=== PATIENT | female | born 1980 | race Caucasian/White ===

== ENCOUNTER 2020-02-18 15:54 | Emergency (ER) | payer OTHER, SELFPAY ==
[2020-02-18 16:48] VITALS: BP 110/63; PULSE 60; RESP 18; TEMP 36.3; O2SAT 96; BMI 25.0
--- NOTE | 2020-02-18 17:04 | PC.NURSE ---
Pt cooperative with change management facilitator. Tearful. Currently resting in room. No complaints or signs of distress.
[2020-02-18 17:34] LABS: UPreg QC Valid YES; Urine Pregnancy NEGATIVE (NEGATIVE)
[2020-02-18 18:04] LABS: Amphetamine Screen Urine Not Detected (Not Detect); Barbiturates, Urine Not Detected (Not Detect); Benzodiazepines Screen Urine Not Detected (Not Detect); Cannabinoid Screen Urine Not Detected (Not Detect); Cocaine Screen Urine Not Detected (Not Detect); Opiate Screen Urine Not Detected (Not Detect); Phencyclidine Screen Urine Not Detected (Not Detect)
--- NOTE | 2020-02-18 18:38 | ED_ITS ---
HPI - Psych General Chief Complaint: Psychiatric Symptoms <Jaziel Kim NP - Last Filed: 02/18/20 20:54> Stated Complaint: CRISIS <Jaziel Kim NP - Last Filed: 02/18/20 20:54> Time Seen by Provider: 02/18/20 18:38 <Jaziel Kim NP - Last Filed: 02/18/20 20:54> Source: patient <Jaziel Kim NP - Last Filed: 02/18/20 20:54> Mode of arrival: ambulatory <Jaziel Kim NP - Last Filed: 02/18/20 20:54> Limitations: no limitations <Jaziel Kim NP - Last Filed: 02/18/20 20:54> History of Present Illness HPI Narrative: This is a 39-year-old female with history of bipolar 1, manic depression, anxiety disorder an ulcer colitis who presents via ambulatory via triage with complaint of feeling increasingly depressed and suicidal. States this is compounding over the past several days / weeks and exacerbated by the fact that she does not have custody of her daughter and has been in legal barr with her mother to get custody. She otherwise denies any illicit substance use. Denies any alcohol use. Denies any medical problems at this time. Upon my arrival to the bedside patient was eating dinner in no acute distress. <Jaziel Kim NP - Last Filed: 02/18/20 20:54> MD complaint: suicidal ideation and feels depressed <Jaziel Kim NP - Last Filed: 02/18/20 20:54> Onset (ago): day(s) <Jaziel Kim NP - Last Filed: 02/18/20 20:54> Duration: constant <Jaziel Kim NP - Last Filed: 02/18/20 20:54> History of same: Yes <Jaziel Kim NP - Last Filed: 02/18/20 20:54> Relieving factors: none <Jaziel Kim NP - Last Filed: 02/18/20 20:54> Exacerbating factors: other ( Social stressors) <Jaziel Kim NP - Last Filed: 02/18/20 20:54> Associated psychiatric symptoms: depression and suicidal ideation <Jaziel Kim NP - Last Filed: 02/18/20 20:54> Associated symptoms: denies other symptoms <Jaziel Kim NP - Last Filed: 02/18/20 20:54> Treatments prior to arrival: none <Jaziel Kim NP - Last Filed: 02/18/20 20:54> If self harm: admits thoughts of self harm ( no specific plan) <Jaziel Kim NP - Last Filed: 02/18/20 20:54> Related Data Home Medications: Home Medications Medication Instructions Recorded Confirmed citalopram 20 mg PO DAILY 02/18/20 02/18/20 clonidine HCl 0.1 mg PO BID 02/18/20 02/18/20 clonidine HCl 0.2 mg PO BEDTIME 02/18/20 02/18/20 gabapentin 300 mg PO TID 02/18/20 02/18/20 mirtazapine [Remeron] 15 mg PO BEDTIME 02/18/20 02/18/20 oxcarbazepine [Trileptal] 300 mg PO BID 02/18/20 02/18/20 quetiapine [Seroquel] 100 mg PO BEDTIME 02/18/20 02/18/20 <Jaziel Kim NP - Last Filed: 02/18/20 20:54> Allergies/Adverse Reactions: Allergies Allergy/AdvReac Type Severity Reaction Status Date / Time No Known Allergies Allergy Unverified 01/20/20 17:24 [No Known Allergies*] mayonaise Allergy Unknown rash Uncoded 07/31/16 00:00 <Jaziel Kim NP - Last Filed: 02/18/20 20:54> Review of Systems Review of Systems: Constitutional: No Weight loss, No Fever, No Chills, No Night Sweats, No Fatigue, No Malaise ENT/Mouth: No Hearing loss, No Ear Pain, No Nasal Congestion, No Sinus Pain, No Hoarseness, No sore throat, No Rhinorrhea, No Swallowing Difficulty Eyes: No Eye Pain, No Swelling, No Redness, No Foreign Body, No Discharge, No Vision Changes Cardiovascular: No Chest Pain, No SOB, No Dyspnea on Exertion, No Orthopnea, No Edema, No Palpitations Respiratory: No Cough, No Sputum, No Wheezing, No Smoke Exposure, No Dyspnea Gastrointestinal: No Nausea, No Vomiting, No Diarrhea, No Constipation, No abdominal Pain, No Hematochezia, No Melena Genitourinary: no irregular bleeding, No Dysuria, No Urinary Frequency, No Hematuria, No Urinary Incontinence, No Urgency, No Flank Pain, No Urinary Flow Changes, No Hesitancy Musculoskeletal: No joint pain, No Myalgias, No Joint Swelling Skin: No Skin Lesions, No rash Neuro: No Weakness, No Numbness, No Paresthesias, No Loss of Consciousness, No Dizziness, No Headache Psych: as noted in HPI Heme/Lymph: No Bruising, No Bleeding,No Lymphadenopathy Endocrine: No Polyuria, No Polydipsia, No Temperature Intolerance <Jaziel Kim NP - Last Filed: 02/18/20 20:54> Yes all other systems are reviewed and are negative <Jaziel Kim NP - Last Filed: 02/18/20 20:54> [facility] Past Medical History Attestation statement: The following information was validated with the patient. <Jaziel Kim NP - Last Filed: 02/18/20 20:54> Medical History: Medical History (Updated 02/18/20 @ 20:54 by Jaziel Kim NP) Stomach ulcer Ulcerative (chronic) enterocolitis <Jaziel Kim NP - Last Filed: 02/18/20 20:54> Social History Social History: Social History Alcohol intake: unknown Smoking Status: Unknown if ever smoked Use of substances other than those prescribed or required for medical reasons: Unknown Any prior treatment program specific to substance use: Yes Advance Directives: No Advance Directives Information Provided: Yes <Jaziel Kim NP - Last Filed: 02/18/20 20:54> Physical Exam Vital Signs: Vital Signs: Vital Signs Temp Pulse Resp BP Pulse Ox 02/18/20 21:37 97 F 55 16 101/58 L 96 02/18/20 20:12 59 110/76 02/18/20 16:48 97.3 F 60 18 110/63 96 Body Mass Index 25.0 Reviewed <Jaziel Kim NP - Last Filed: 02/18/20 20:54> Vital Signs: Vital Signs Temp Pulse Resp BP Pulse Ox 02/18/20 21:37 97 F 55 16 101/58 L 96 02/18/20 20:12 59 110/76 02/18/20 16:48 97.3 F 60 18 110/63 96 Body Mass Index 25.0 <Christopher Pena MD - Last Filed: 02/19/20 00:30> Const: General: cooperative and healthy appearing; No acute distress or intoxicated appearing <[facility] LION Kim - Last Filed: 02/18/20 20:54> Nutritional Appearance: average body habitus <[facility] LION Kim - Last Filed: 02/18/20 20:54> Orientation/consciousness: patient oriented x3 <[facility] LION Kim - Last Filed: 02/18/20 20:54> HENMT: Head: Yes normal to inspection <[facility] Julio WEATHER OBSERVER - Last Filed: 02/18/20 20:54> Ears: hearing grossly normal bilaterally <[facility] Julio WEATHER OBSERVER - Last Filed: 02/02 10/22 20:54> Eyes: General: appearance normal, both eyes and all related structures <[facility] LION Kim - Last Filed: 02/18/20 20:54> Visual Yousif: normal visual yousif by confrontation <[facility] Julio WEATHER OBSERVER - Last Filed: 02/18/20 20:54> Neck: Neck: Yes normal visual inspection and No tender <[facility] Julio WEATHER OBSERVER - Last Filed: 02/18/20 20:54> Thyroid: Thyroid normal <[facility] Julio WEATHER OBSERVER - Last Filed: 02/18/20 20:54> Chest: Chest palpation & inspection: normal inspection of the chest <[facility] LION Kim - Last Filed: 02/18/20 20:54> Resp: Effort & Inspection: normal respiratory effort <[facility] LION Kim - Last Filed: 02/18/20 20:54> Cardio: Jugular venous distension: no JVD <[facility] Julio - Last Filed: 02/18/20 20:54> GI: Inspection: Yes normal to inspection <[facility] LION Kim - Last Filed: 02/18/20 20:54> Percussion: Yes normal to percussion <[facility] Julio WEATHER OBSERVER - Last Filed: 02/18/20 20:54> Auscultation: normal bowel sounds <[facility] Julio WEATHER OBSERVER - Last Filed: 02/18/20 20:54> : General: Yes no CVA tenderness <[facility] Julio WEATHER OBSERVER - Last Filed: 02/18/20 20:54> Back/Spine/Pelvis: Back: no CVA tenderness <Jaziel Kim NP - Last Filed: 02/18/20 20:54> Skin: General skin exam: no rashes or lesions noted <Jaziel Kim NP - Last Filed: 02/18/20 20:54> Neuro: General: patient oriented x3 <Jaziel Kim NP - Last Filed: 02/18/20 20:54> Extrem: General: Yes normal to inspection <Jaziel Kim NP - Last Filed: 02/18/20 20:54> Course Course Course Narrative: interview 39-year-old female with above history presenting with complaint of suicidal ideation in the setting of progressively worsening depression. Offers no medical complaints. At this time will get medical screening labs and crisis evaluation. Plan reviewed agreeable. <Jaziel Kim NP - Last Filed: 02/18/20 20:54> I have reviewed the chart <Christopher Pena MD - Last Filed: 02/19/20 00:30> Reevaluation(s) Reevaluation #1: 1830; evaluate by care team apparently revelation that she was evaluated by crisis team in the community and there was bed search for respite in progress. Care team will clarify this and get back to me. <Jaziel Kim NP - Last Filed: 02/18/20 20:54> Consultations Consultation #1: 2100 Signed out to night team pending crisis evaluation. <Jaziel Kim NP - Last Filed: 02/18/20 20:54> MDM - Psych Restraints Face to Face Assessment: Face to Face Assessment: Current Situation: After assessment of the patient, a review of the pertinent medical record and a discussion with nursing staff, I feel the patient requires a restrain intervention. Reaction To: [] Medical Condition: [] Behavioral State: [] Continued Need: [] <Jaziel Kim NP - Last Filed: 02/18/20 20:54> Lab Data Result diagrams: : 02/18/20 20:39 02/18/20 20:39 <Jaziel Kim NP - Last Filed: 02/18/20 20:54> Labs: Lab Results 10/16/20 10/16/20 10/16/20 Range/Units 17:05 17:05 20:39 WBC 4.9 (4.8-10.8) X10*3/uL RBC 4.50 (4.20-5.50) X10*6/uL Hgb 13.4 (12.0-16.0) g/dl Hct 40.3 (37-47) % MCV 89.6 (80-98) fL MCH 29.8 (27.0-33.0) pg MCHC 33.3 (31.0-35.0) g/dl RDW 12.9 (11.0-16.0) % Plt Count 148 L (160-400) X10*3/uL MPV 11.1 (9.4-12.3) fL Immature Gran % (Auto) 0.4 (0.0-0.4) % Neut % (Auto) 49.7 (45-73) % Lymph % (Auto) 41.4 H (20-40) % [place] % (Auto) 5.5 (2-11) % Eos % (Auto) 2.2 (0-4) % Baso % (Auto) 0.8 (0-2) % Lymph # (Auto) 2.0 (1.2-4.9) X10*3/uL [place] # (Auto) 0.3 (0.1-1.2) X10*3/uL Eos # (Auto) 0.1 (0.0-0.4) X10*3/uL Baso # (Auto) 0.0 (0.0-0.2) X10*3/uL Abs Immat Gran (auto) 0.02 (0.00-0.03) X10*3/uL Absolute Neuts (auto) 2.5 (2.0-8.3) X10*3/uL Absolute Nucleated RBC 0.000 (0.0-0.012) X10*3/uL Nucleated RBC % (auto) 0.0 (0.0-0.2) /100WBC Sodium (135-145) mmol/L Potassium (3.3-5.1) mmol/l Chloride (96-108) mmol/L Carbon Dioxide (22-29) mmol/L Anion Gap (12-20) BUN (9-16) mg/dL Creatinine (0.5-1.4) mg/dL Estim Creat Clear Calc Estimated GFR Random Glucose (60-115) mg/dL Calcium (8.4-10.2) mg/dL Total Bilirubin (0.0-1.0) mg/dL Direct Bilirubin (0.0-0.5) mg/dL AST (5-31) U/L ALT (0-31) U/L Alkaline Phosphatase (39-117) U/L Total Protein (6.5-8.0) g/dL Albumin (3.5-5.0) g/dL Urine Test NEGATIVE (NEGATIVE) Urine Opiates Screen Not Detected (Not Detect) Ur Barbiturates Screen Not Detected (Not Detect) Ur Phencyclidine Scrn Not Detected (Not Detect) Ur Amphetamines Screen Not Detected (Not Detect) U Benzodiazepines Scrn Not Detected (Not Detect) Urine Cocaine Screen Not Detected (Not Detect) U Marijuana (THC) Screen Not Detected (Not Detect) Ethyl Alcohol mg/dL 02/18/20 02/18/20 Range/Units 20:39 20:39 WBC (4.8-10.8) X10*3/uL RBC (4.20-5.50) X10*6/uL Hgb (12.0-16.0) g/dl Hct (37-47) % MCV (80-98) fL MCH (27.0-33.0) pg MCHC (31.0-35.0) g/dl RDW (11.0-16.0) % Plt Count (160-400) X10*3/uL MPV (9.4-12.3) fL Immature Gran % (Auto) (0.0-0.4) % Neut % (Auto) (45-73) % Lymph % (Auto) (20-40) % [place] % (Auto) (2-11) % Eos % (Auto) (0-4) % Baso % (Auto) (0-2) % Lymph # (Auto) (1.2-4.9) X10*3/uL [place] # (Auto) (0.1-1.2) X10*3/uL Eos # (Auto) (0.0-0.4) X10*3/uL Baso # (Auto) (0.0-0.2) X10*3/uL Abs Immat Gran (auto) (0.00-0.03) X10*3/uL Absolute Neuts (auto) (2.0-8.3) X10*3/uL Absolute Nucleated RBC (0.0-0.012) X10*3/uL Nucleated RBC % (auto) (0.0-0.2) /100WBC Sodium 139 (135-145) mmol/L Potassium 4.2 (3.3-5.1) mmol/l Chloride 106 (96-108) mmol/L Carbon Dioxide 26 (22-29) mmol/L Anion Gap 11 L (12-20) BUN 15 (9-16) mg/dL Creatinine 0.88 (0.5-1.4) mg/dL Estim Creat Clear Calc 85.7 Estimated GFR > 60 Random Glucose 95 (60-115) mg/dL Calcium 9.1 (8.4-10.2) mg/dL Total Bilirubin 0.3 (0.0-1.0) mg/dL Direct Bilirubin < 0.2 (0.0-0.5) mg/dL AST 15 (5-31) U/L ALT 15 (0-31) U/L Alkaline Phosphatase 62 (39-117) U/L Total Protein 6.6 (6.5-8.0) g/dL Albumin 4.4 (3.5-5.0) g/dL Urine Test (NEGATIVE) Urine Opiates Screen (Not Detect) Ur Barbiturates Screen (Not Detect) Ur Phencyclidine Scrn (Not Detect) Ur Amphetamines Screen (Not Detect) U Benzodiazepines Scrn (Not Detect) Urine Cocaine Screen (Not Detect) U Marijuana (THC) Screen (Not Detect) Ethyl Alcohol < 10 mg/dL <Jaziel Kim NP - Last Filed: 02/18/20 20:54> Lab Results 02/18/20 02/18/20 02/18/20 Range/Units 17:05 17:05 20:39 WBC 4.9 (4.8-10.8) X10*3/uL RBC 4.50 (4.20-5.50) X10*6/uL Hgb 13.4 (12.0-16.0) g/dl Hct 40.3 (37-47) % MCV 89.6 (80-98) fL MCH 29.8 (27.0-33.0) pg MCHC 33.3 (31.0-35.0) g/dl RDW 12.9 (11.0-16.0) % Plt Count 148 L (160-400) X10*3/uL MPV 11.1 (9.4-12.3) fL Immature Gran % (Auto) 0.4 (0.0-0.4) % Neut % (Auto) 49.7 (45-73) % Lymph % (Auto) 41.4 H (20-40) % [place] % (Auto) 5.5 (2-11) % Eos % (Auto) 2.2 (0-4) % Baso % (Auto) 0.8 (0-2) % Lymph # (Auto) 2.0 (1.2-4.9) X10*3/uL [place] # (Auto) 0.3 (0.1-1.2) X10*3/uL Eos # (Auto) 0.1 (0.0-0.4) X10*3/uL Baso # (Auto) 0.0 (0.0-0.2) X10*3/uL Abs Immat Gran (auto) 0.02 (0.00-0.03) X10*3/uL Absolute Neuts (auto) 2.5 (2.0-8.3) X10*3/uL Absolute Nucleated RBC 0.000 (0.0-0.012) X10*3/uL Nucleated RBC % (auto) 0.0 (0.0-0.2) /100WBC Sodium (135-145) mmol/L Potassium (3.3-5.1) mmol/l Chloride (96-108) mmol/L Carbon Dioxide (22-29) mmol/L Anion Gap (12-20) BUN (9-16) mg/dL Creatinine (0.5-1.4) mg/dL Estim Creat Clear Calc Estimated GFR Random Glucose (60-115) mg/dL Calcium (8.4-10.2) mg/dL Total Bilirubin (0.0-1.0) mg/dL Direct Bilirubin (0.0-0.5) mg/dL AST (5-31) U/L ALT (0-31) U/L Alkaline Phosphatase (39-117) U/L Total Protein (6.5-8.0) g/dL Albumin (3.5-5.0) g/dL Urine Test NEGATIVE (NEGATIVE) Urine Opiates Screen Not Detected (Not Detect) Ur Barbiturates Screen Not Detected (Not Detect) Ur Phencyclidine Scrn Not Detected (Not Detect) Ur Amphetamines Screen Not Detected (Not Detect) U Benzodiazepines Scrn Not Detected (Not Detect) Urine Cocaine Screen Not Detected (Not Detect) U Marijuana (THC) Screen Not Detected (Not Detect) Ethyl Alcohol mg/dL 02/18/20 02/18/20 Range/Units 20:39 20:39 WBC (4.8-10.8) X10*3/uL RBC (4.20-5.50) X10*6/uL Hgb (12.0-16.0) g/dl Hct (37-47) % MCV (80-98) fL MCH (27.0-33.0) pg MCHC (31.0-35.0) g/dl RDW (11.0-16.0) % Plt Count (160-400) X10*3/uL MPV (9.4-12.3) fL Immature Gran % (Auto) (0.0-0.4) % Neut % (Auto) (45-73) % Lymph % (Auto) (20-40) % [place] % (Auto) (2-11) % Eos % (Auto) (0-4) % Baso % (Auto) (0-2) % Lymph # (Auto) (1.2-4.9) X10*3/uL [place] # (Auto) (0.1-1.2) X10*3/uL Eos # (Auto) (0.0-0.4) X10*3/uL Baso # (Auto) (0.0-0.2) X10*3/uL Abs Immat Gran (auto) (0.00-0.03) X10*3/uL Absolute Neuts (auto) (2.0-8.3) X10*3/uL Absolute Nucleated RBC (0.0-0.012) X10*3/uL Nucleated RBC % (auto) (0.0-0.2) /100WBC Sodium 139 (135-145) mmol/L Potassium 4.2 (3.3-5.1) mmol/l Chloride 106 (96-108) mmol/L Carbon Dioxide 26 (22-29) mmol/L Anion Gap 11 L (12-20) BUN 15 (9-16) mg/dL Creatinine 0.88 (0.5-1.4) mg/dL Estim Creat Clear Calc 85.7 Estimated GFR > 60 Random Glucose 95 (60-115) mg/dL Calcium 9.1 (8.4-10.2) mg/dL Total Bilirubin 0.3 (0.0-1.0) mg/dL Direct Bilirubin < 0.2 (0.0-0.5) mg/dL AST 15 (5-31) U/L ALT 15 (0-31) U/L Alkaline Phosphatase 62 (39-117) U/L Total Protein 6.6 (6.5-8.0) g/dL Albumin 4.4 (3.5-5.0) g/dL Urine Test (NEGATIVE) Urine Opiates Screen (Not Detect) Ur Barbiturates Screen (Not Detect) Ur Phencyclidine Scrn (Not Detect) Ur Amphetamines Screen (Not Detect) U Benzodiazepines Scrn (Not Detect) Urine Cocaine Screen (Not Detect) U Marijuana (THC) Screen (Not Detect) Ethyl Alcohol < 10 mg/dL <Christopher Pena MD - Last Filed: 02/19/20 00:30> Discharge Plan Discharge Clinical Impression: Depression <Jaziel Kim NP - Last Filed: 02/18/20 20:54> Prescriptions: No Action oxcarbazepine [Trileptal] 150 mg Tablet 300 mg PO BID RF: 0 clonidine HCl 0.1 mg Tablet 0.1 mg PO BID RF: 0 quetiapine [Seroquel] 100 mg Tablet 100 mg PO BEDTIME RF: 0 clonidine HCl 0.2 mg Tablet 0.2 mg PO BEDTIME RF: 0 mirtazapine [Remeron] 15 mg Tablet 15 mg PO BEDTIME RF: 0 gabapentin 300 mg Tablet 300 mg PO TID RF: 0 citalopram 20 mg Tablet 20 mg PO DAILY RF: 0 <Jaziel Kim NP - Last Filed: 02/18/20 20:54>
--- NOTE | 2020-02-18 18:38 | PC.NURSE ---
Pt resting, awaiting evaluation. No concerns reported.
--- NOTE | 2020-02-18 19:15 | PC.NURSE ---
Called [facility], spoke with Dianne. Pt was seen in the community yesterday, is a respite bed search. [facility] will be out tomorrow AM to do a MSU.
--- NOTE | 2020-02-18 20:03 | PC.NURSE ---
Pt currently on phone. Slightly agitated after learning that N would not be out to see pt until the AM for a MSU. This is shit that makes people want to kill themselves .
[2020-02-18 20:12] VITALS: BP 110/76; PULSE 59
[2020-02-18] MEDS: Mirtazapine 15 MG TABLET PO (20:12)
[2020-02-18] MEDS: cloNIDine HCL 0.2 MG TABLET PO (20:12)
[2020-02-18] MEDS: QUEtiapine Fumarate 100 MG TABLET PO (20:13)
[2020-02-18] MEDS: LORazepam 1 MG TABLET PO (20:13)
--- NOTE | 2020-02-18 20:32 | PC.NURSE ---
Pt's residence - [facility], faxed pt's current med list.
[2020-02-18 20:47] LABS: MANUAL DIFF FLAG NO
[2020-02-18 20:49] LABS: Basophils Percent Auto 0.8 % (0-2); Eosinophils Absolute Auto 0.1 X10*3/uL (0.0-0.4); Eosinophils Percent Auto 2.2 % (0-4); Hematocrit 40.3 % (37-47); Hemoglobin 13.4 g/dl (12.0-16.0); Imm Gran Abs Auto 0.02 X10*3/uL (0.00-0.03); Imm Gran Pct Auto 0.4 % (0.0-0.4); Lymphocytes Percent Auto 41.4 % (20-40); Mean Corpuscular HGB Conc 33.3 g/dl (31.0-35.0); Mean Corpuscular Hemoglobin 29.8 pg (27.0-33.0); Mean Corpuscular Volume 89.6 fL (80-98); Mean Platelet Volume 11.1 fL (9.4-12.3); Monocytes Absolute Auto 0.3 X10*3/uL (0.1-1.2); Monocytes Percent Auto 5.5 % (2-11); Neutrophils Absolute Auto 2.5 X10*3/uL (2.0-8.3); Neutrophils Percent Auto 49.7 % (45-73); Platelet Count 148 X10*3/uL (160-400); Red Cell Distribution Width 12.9 % (11.0-16.0); White Blood Count 4.9 X10*3/uL (4.8-10.8)
[2020-02-18 21:12] LABS: Ethanol < 10 mg/dL
[2020-02-18 21:14] LABS: Alanine Aminotransferase 15 U/L (0-31); Albumin Level 4.4 g/dL (3.5-5.0); Alkaline Phosphatase 62 U/L (39-117); Anion Gap 11 (12-20); Aspartate Amino Transferase 15 U/L (5-31); Bilirubin Direct < 0.2 mg/dL (0.0-0.5); Bilirubin Total 0.3 mg/dL (0.0-1.0); Blood Urea Nitrogen 15 mg/dL (9-16); Calcium 9.1 mg/dL (8.4-10.2); Carbon Dioxide 26 mmol/L (22-29); Chloride 106 mmol/L (96-108); Creatinine Clr Calc Pharmacy 85.7; Estimated Glomerular Filt Rate > 60; Glucose Random 95 mg/dL (60-115); Potassium 4.2 mmol/l (3.3-5.1); Sodium 139 mmol/L (135-145); Total Protein 6.6 g/dL (6.5-8.0)
[2020-02-18 21:37] VITALS: BP 101/58; PULSE 55; RESP 16; TEMP 36.1; O2SAT 96
[2020-02-19] MEDS: OXcarbazepine 150 MG TABLET 300 MG PO ×2 (00:05→09:31)
[2020-02-19 06:38] VITALS: BP 106/53; PULSE 54; RESP 16; TEMP 36.4; O2SAT 95
--- NOTE | 2020-02-19 06:54 | PC.NURSE ---
Report received. PT sleeping in bed. Breathing is even and unlabored. PT to be reevaluated this morning.
[2020-02-19 09:04] VITALS: BP 100/59; PULSE 50; RESP 18; TEMP 36.8
[2020-02-19 09:31] VITALS: BP 107/62; PULSE 51
[2020-02-19] MEDS: Gabapentin 300 MG CAPSULE PO (09:31)
[2020-02-19] MEDS: Escitalopram Oxalate 10 MG TABLET PO (09:31)
[2020-02-19] MEDS: cloNIDine HCL 0.1 MG TABLET PO (09:31)
--- NOTE | 2020-02-19 09:41 | PC.NURSE ---
[facility] contaced to verify methadone dose. This RN spoke with Tameka who stated pt was last does on 02/15 with 85mg and that pt was given 6 take home doses at that time.
[2020-02-19] MEDS: Nicotine 21 MG PATCH.TD24 TRANSDERMA (09:57)
--- NOTE | 2020-02-19 10:01 | PC.NURSE ---
PT is resting in bed watching TV. Calm and cooperative. No other complaints.
== END 2020-02-19 11:41 | disposition home or self-care (01) ==
PROVIDERS: Nurse Practitioner Primary Care; Emergency Provider Emergency Medicine; PCP Internal Medicine
DX: F31.89 Other bipolar disorder (principal); R45.851 Suicidal ideations; Z79.899 Other long term (current) drug therapy
CPT/HCPCS: 36415; 80048; 80076; 80307; 80320; 81025; 85025; 99285